=== PATIENT | female | born 1950 | race Caucasian/White ===

== ENCOUNTER 2018-11-25 15:35 | Inpatient (IN) ==
[2018-11-25] MEDS ORDERED: Ipratropium/Albuterol Neb 3 ML IH ONE (15:49)
[2018-11-25] MEDS ORDERED: Azithromycin 500 MG in D5% in Water 250 ML IVPB ONE (15:49)
[2018-11-25] MEDS ORDERED: Ondansetron 4 MG/2 ML VIAL IVP ONE (15:49)
--- NOTE | 2018-11-25 15:51 | Emergency Department Note ---
Disposition Clinical Impression: Community acquired pneumonia Disposition: Admitted As Inpatient Condition: Fair Referrals: Josef Caldera CNP [Primary Care Provider] - Forms: ED Satisfaction Letter Time of Disposition: 17:22 (obsv [facility]) SOB HPI - General Chief Complaint: ED Shortness of Breath/Dyspnea Stated Complaint: COUGH, FEVER Time Seen by Provider: 11/25/18 15:38 Source: patient Mode of arrival: ambulatory Limitations: no limitations Nursing Notes Reviewed: Yes Vital Signs Reviewed: Yes - History of Present Illness 68-year-old female fever chills are not noted that she has been having cough congestion thick phlegm production yellow-green in color choking on episodes of phlegm that she is unable to ambulate around the house without significant dyspnea she denies any diarrhea melena hematochezia hematemesis has had chest pressure but no chest pain no radiation up into the neck or jaw symptoms are not getting better they discontinued should progressively worsening she denies any additional complaints with complete entire review systems Pt Subjective Complaint: shortness of breath, cough Onset (ago): day(s) Context: recent illness Severity: moderate, severe Consistency/Duration: gradually worsening Improves with: oxygen, bronchodilators Worsens with: exertion, movement Known history of: COPD Associated symptoms: Reports: cough, wheezing, sputum production. Denies: chest pain, pain with inspiration, fever, orthopnea, lower extremity pain, polyuria, polydipsia, parasthesias, palpitations, hemoptysis, diaphoresis, nausea/vomiting, syncope, abdominal pain, sense of impending doom Treatment prior to arrival: bronchodilator Cough present: Yes Cough Description: Involuntary, Productive, Strong, Rattling Cough Frequency: Intermittent Sputum production: Yes Sputum Amount: Moderate Sputum Color: Yellow, Green - Related Data Home Medications Medication Instructions Recorded Confirmed Albuterol Sulfate [Albuterol 2 puff IH Q6H PRN 11/25/18 11/25/18 Inhaler] Previous Rx's Medication Instructions Recorded Montelukast [Singulair] 10 mg PO DAILY #30 tablet 10/28/18 Allergies Allergy/AdvReac Type Severity Reaction Status Date / Time No Known Allergies Allergy Verified 10/28/18 19:46 All systems ED: reviewed and negative except as stated. Review of Systems: As Per HPI Constitutional: Reports: fever, weakness. Denies: chills Eyes: Denies: eye pain, eye discharge ENT ED: Reports: throat pain, congestion. Denies: ear pain Cardiovascular: Reports: dyspnea on exertion. Denies: chest pain, palpitations Respiratory: Reports: cough, dyspnea, wheezes, sputum production Gastrointestinal: Denies: abdominal pain, nausea, vomiting Genitourinary: Denies: urgency, dysuria Musculoskeletal: Denies: back pain, neck pain Integumentary: Denies: rash, abrasion Neurological: Denies: headache Psychiatric: Denies: anxiety Endocrine: Denies: fatigue Hematological/Lymphatic: Denies: easy bleeding Allergic/Immunologic: Denies: facial swelling Past Medical History - Past Medical History Source: patient, old records reviewed, nursing notes reviewed Medical history: Reports: COPD - Social History Smoking Status: Current every day smoker Smokeless Tobacco Status: No Alcohol use: Reports: none Drug use: Reports: none Physical Exam - General Limitations: no limitations General appearance: alert, anxious, in distress (With episodes of coughing) - Head Head exam: atraumatic, normocephalic, normal inspection - Eye Eye exam: Present: normal appearance, PERRL, EOMI - ENT ENT exam: normal exam, normal oropharynx, mucous membranes moist, TM's normal bilaterally, normal external ear exam, other (Heavy postnasal drip) - Neck Neck exam: Present: normal inspection, full ROM, trachea midline - Chest Chest inspection: Present: normal inspection, symmetric chest wall rise - Respiratory Respiratory exam: Present: wheezes, prolonged expiratory phase - Cardiovascular Cardiovascular exam: Present: tachycardia, normal heart sounds - Abdominal Exam Abdominal exam: Present: soft, Non-Tender, normal bowel sounds. Absent: mass, pulsatile mass - Expanded Upper Extremity Exam Shoulder exam: Present: normal inspection, full ROM Arm exam: Present: normal inspection, full ROM Elbow exam: Present: normal inspection, full ROM Forearm/Wrist exam: Present: normal inspection, full ROM Hand exam: Present: normal inspection, full ROM Vascular exam: Normal: capillary refill, radial pulse - Expanded Lower Extremity Exam Hip/Pelvis exam: Present: normal inspection, full ROM Upper leg exam: Present: normal inspection, full ROM Knee exam: Present: normal inspection, full ROM Lower leg exam: Present: normal inspection, full ROM Ankle exam: Present: normal inspection, full ROM Foot/toe exam: Present: normal inspection, full ROM Neurovascular/Tendon exam: Present: normal capillary refill, normal fine/light touch. Absent: motor deficit, sensory deficit, tendon deficit Gait: observed and normal - Back Exam Back exam: Present: normal inspection, full ROM. Absent: muscle spasm - Neurological Exam Neurological exam: Present: alert, oriented X3, CN II-XII intact, normal gait - Psychiatric Psychiatric exam: Present: normal affect, normal mood - Skin Skin exam: Present: warm, dry, intact, normal color Course Course Narrative: Patient seen and evaluated patient had been placed on oxygen immediately which did help with her saturations but any type of coughing she would immediately gas desaturate down heart rates 126 she does meet criteria for sepsis most likely secondary to pneumonic type process result I had started sepsis protocol in addition to this will go ahead make arrangements for transfer versus admission pending on the chest x-ray and white count patient be admitted to the hospital for further care treatment management Vital Signs Temperature 98.6 F 11/25/18 15:37 Pulse Rate 132 11/25/18 15:37 Respiratory Rate 20 11/25/18 15:37 Blood Pressure 140/66 11/25/18 15:37 O2 Sat by Pulse Oximetry 86 11/25/18 15:37 Temperature 98.6 F 11/25/18 15:37 Pulse Rate 119 11/25/18 17:08 Respiratory Rate 19 11/25/18 17:08 Blood Pressure 112/59 11/25/18 17:08 O2 Sat by Pulse Oximetry 93 11/25/18 17:08 Oxygen Delivery Oxygen Delivery Nasal Cannula Shortness of Breath/Dyspnea - Differential Diagnosis Likely: acute exacerbation of chronic obstructive airways disease - Medical Records Medical records reviewed: Yes I reviewed the patient's medical records. - Lab Data Lab results reviewed: Yes I reviewed the patient's lab results. Result diagrams: 11/25/18 16:06 11/25/18 16:06 Lab Results 11/25/18 11/25/18 11/25/18 Range/Units 16:06 16:06 16:06 WBC 19.3 H (4.3-11.1) K/mcL RBC 5.05 H (3.82-4.97) M/mcL Hgb 15.0 (11.5-15.4) g/dL Hct 45.5 H (35.3-44.9) % MCV 90.1 (83.0-100.0) fL MCH 29.7 (28.0-33.3) pg MCHC 33.0 (31.6-35.5) g/dL RDW 14.1 (11.5-14.5) % Plt Count 248 (140-400) K/mcL MPV 9.7 (9.4-12.4) fL Immature Gran % 0.7 (0-4) % Seg Neutrophils % 87.0 % Lymphocytes % 5.4 % Monocytes % 6.2 % Eosinophils % 0.3 % Basophils % 0.4 % Neutrophils # 16.8 H (1.6-8.9) K/mcL Lymphocytes # 1.0 (0.6-4.6) K/mcL Monocytes # 1.2 (0.0-1.3) K/mcL Eosinophils # 0.1 (0.0-0.6) K/mcL Basophils # 0.1 (0.0-0.2) K/mcL PT (9.4-12.1) Seconds INR APTT 39.5 H (26.0-36.0) Seconds Sodium 134 L (136-145) mEq/L Potassium 3.9 (3.5-5.1) mEq/L Chloride 95 L (98-107) mEq/L Carbon Dioxide 28 (23-29) mEq/L BUN 11 (8-23) mg/dL Creatinine 0.91 (0.60-1.20) mg/dL Est GFR ( Amer) > 60 (> 60) Est GFR (Non-Af Amer) > 60 (> 60) BUN/Creatinine Ratio 12 (6-26) Glucose 207 H (70-105) mg/dL Calculated Osmolality 283 (280-300) Lactic Acid (0.5-2.2) mmol/L Calcium 9.4 (8.6-10.3) mg/dL Total Bilirubin 1.0 (0.3-1.0) mg/dL AST 13 (13-39) Units/L ALT 12 (7-52) Units/L Alkaline Phosphatase 115 H (34-104) Units/L Serum Total Protein 8.2 (6.4-8.9) g/dL Albumin 4.0 (3.5-5.7) g/dL Globulin 4.2 H (2.4-3.5) g/dL Albumin/Globulin Ratio 1.0 L (1.1-2.2) 11/25/18 11/25/18 Range/Units 16:06 16:06 WBC (4.3-11.1) K/mcL RBC (3.82-4.97) M/mcL Hgb (11.5-15.4) g/dL Hct (35.3-44.9) % MCV (83.0-100.0) fL MCH (28.0-33.3) pg MCHC (31.6-35.5) g/dL RDW (11.5-14.5) % Plt Count (140-400) K/mcL MPV (9.4-12.4) fL Immature Gran % (0-4) % Seg Neutrophils % % Lymphocytes % % Monocytes % % Eosinophils % % Basophils % % Neutrophils # (1.6-8.9) K/mcL Lymphocytes # (0.6-4.6) K/mcL Monocytes # (0.0-1.3) K/mcL Eosinophils # (0.0-0.6) K/mcL Basophils # (0.0-0.2) K/mcL PT 14.3 H (9.4-12.1) Seconds INR 1.3 APTT (26.0-36.0) Seconds Sodium (136-145) mEq/L Potassium (3.5-5.1) mEq/L Chloride (98-107) mEq/L Carbon Dioxide (23-29) mEq/L BUN (8-23) mg/dL Creatinine (0.60-1.20) mg/dL Est GFR ( Amer) (> 60) Est GFR (Non-Af Amer) (> 60) BUN/Creatinine Ratio (6-26) Glucose (70-105) mg/dL Calculated Osmolality (280-300) Lactic Acid 1.4 (0.5-2.2) mmol/L Calcium (8.6-10.3) mg/dL Total Bilirubin (0.3-1.0) mg/dL AST (13-39) Units/L ALT (7-52) Units/L Alkaline Phosphatase (34-104) Units/L Serum Total Protein (6.4-8.9) g/dL Albumin (3.5-5.7) g/dL Globulin (2.4-3.5) g/dL Albumin/Globulin Ratio (1.1-2.2) - Radiology Data Radiology results reviewed: Yes I reviewed the patient's radiology results. - EKG Data EKG attestation: Yes I reviewed and interpreted this EKG. EKG results narrative: Sinus tach rate 125 AR 198 QRS 76 QT to 97 access 79 Critical Care Time Critical Care Time: Yes Total Critical Care Time: 15 Attestation: High probability clinically significant life-threatening deterioration is patient's condition exclusive reportable procedures as result of hypoxia the patient having desaturations with episodes of coughing and bringing up thick yellow-green phlegm make arrangements for admission versus transfer discussion with family Sepsis Event Note - Evaluation Sepsis Screen: No Definite Risk Current Stage of Suspected Sepsis: sepsis Possible Source of Sepsis: pulmonary - Focused Exam Date of Encounter: 11/25/18 Time of Encounter: 17:24 Vital Signs: Vital Signs Temp Pulse Resp BP Pulse Ox 11/25/18 17:08 119 19 112/59 93 11/25/18 16:24 132 20 121/79 92 11/25/18 15:56 24 96 11/25/18 15:50 86 11/25/18 15:37 98.6 F 132 20 140/66 86 Respiratory Exam: Present: rhonchi, decreased breath sounds, distant breath sounds Cardiovascular Exam: Present: tachycardia Capillary Refill: < 2 seconds Peripheral Pulse Strength: 3+ normal Peripheral Pulse Location: Radial Skin Exam: normal turgor - Bedside Monitoring Bedside Ultrasound Performed: No Passive Leg raise/fluid bolus: negative
[2018-11-25 16:16] LABS: Basophils # 0.1 K/mcL (0.0-0.2); Basophils % 0.4 %; Eosinophils # 0.1 K/mcL (0.0-0.6); Eosinophils % 0.3 %; Hematocrit 45.5 % (35.3-44.9); Immature Granulocytes % 0.7 % (0-4); Lymphocytes % 5.4 %; Mean Corpuscular Hemoglobin 29.7 pg (28.0-33.3); Mean Corpuscular Volume 90.1 fL (83.0-100.0); Mean Platelet Volume 9.7 fL (9.4-12.4); Monocytes # 1.2 K/mcL (0.0-1.3); Monocytes % 6.2 %; Neutrophils # 16.8 K/mcL (1.6-8.9); Platelet Count 248 K/mcL (140-400); Red Blood Count 5.05 M/mcL (3.82-4.97); Red Cell Distribution Width 14.1 % (11.5-14.5)
[2018-11-25] MEDS: 0.9 % Sodium Chloride 1,000 ML IVC SCH ×8 (16:18→22:50)
[2018-11-25 16:23] LABS: INR 1.3; Prothrombin Time 14.3 Seconds (9.4-12.1)
[2018-11-25 16:36] LABS: Alanine Aminotransferase 12 Units/L (7-52); Alkaline Phosphatase 115 Units/L (34-104); Aspartate Amino Transferase 13 Units/L (13-39); BUN/Creatinine Ratio 12 (6-26); Blood Urea Nitrogen 11 mg/dL (8-23); Calcium 9.4 mg/dL (8.6-10.3); Carbon Dioxide 28 mEq/L (23-29); Chloride 95 mEq/L (98-107); Globulin 4.2 g/dL (2.4-3.5); Glucose 207 mg/dL (70-105); Osmolality,Calculated 283 (280-300); Potassium 3.9 mEq/L (3.5-5.1); Sodium 134 mEq/L (136-145); Total Protein 8.2 g/dL (6.4-8.9); eGFR For Non-African Americans > 60 (> 60)
[2018-11-25] MEDS ORDERED: Naloxone 0.4 MG/ML INJ IVP PRN (20:29)
[2018-11-26 05:58] LABS: Basophils # 0.1 K/mcL (0.0-0.2); Basophils % 0.4 %; Eosinophils # 0.1 K/mcL (0.0-0.6); Eosinophils % 0.7 %; Hemoglobin 12.5 g/dL (11.5-15.4); Immature Granulocytes % 0.8 % (0-4); Lymphocytes # 2.1 K/mcL (0.6-4.6); Lymphocytes % 11.6 %; Mean Corpuscular HGB Conc 32.1 g/dL (31.6-35.5); Mean Corpuscular Hemoglobin 29.7 pg (28.0-33.3); Mean Corpuscular Volume 92.6 fL (83.0-100.0); Mean Platelet Volume 10.2 fL (9.4-12.4); Monocytes # 1.4 K/mcL (0.0-1.3); Monocytes % 7.6 %; Neutrophils # 14.2 K/mcL (1.6-8.9); Platelet Count 233 K/mcL (140-400); Red Blood Count 4.21 M/mcL (3.82-4.97); Red Cell Distribution Width 14.4 % (11.5-14.5); Segmented Neutrophils % 78.9 %
[2018-11-26 06:04] LABS: INR 1.2; Prothrombin Time 13.8 Seconds (9.4-12.1)
[2018-11-26 06:07] LABS: Activated Partial Thrombo Time 37.1 Seconds (26.0-36.0)
[2018-11-26 06:18] LABS: BUN/Creatinine Ratio 9 (6-26); Blood Urea Nitrogen 7 mg/dL (8-23); Calcium 8.5 mg/dL (8.6-10.3); Carbon Dioxide 28 mEq/L (23-29); Chloride 105 mEq/L (98-107); Glucose 120 mg/dL (70-105); Osmolality,Calculated 289 (280-300); Potassium 3.8 mEq/L (3.5-5.1); Sodium 140 mEq/L (136-145); eGFR For Non-African Americans > 60 (> 60)
--- NOTE | 2018-11-26 11:09 | Internal Med History&Physical ---
Date of Encounter: 11/26/18 Time of Encounter: 10:45 Assessment and Plan (1) COPD (chronic obstructive pulmonary disease) Current visit: Yes Status: Acute Failed outpatient treatment. She has been started on IV Rocephin and Zithromax through emergency room. Chest CT will be done to further evaluate. Qualifiers: COPD type: unspecified COPD Qualified Code(s): J44.9 - Chronic obstructive pulmonary disease, unspecified (2) Acute gastroenteritis Current visit: Yes Status: Acute Resolving. Antiemetics will be used as needed. Internal Medicine - H&P: HPI Chief complaint: Cough and dyspnea Admitted From: Emergency Dept Plans for Post Hospital Care: Home History of present illness: Ms. De Los Santos is a 68 year old female who came to emergency room complaining of a 6 week history of cough and dyspnea. She reports taking a Z-Marvin (given to her by her [id number]) followed a few days later by a visit to a local urgent care where she received a 5 day course of Keflex. She completed the Keflex approximately 3 weeks ago without feeling significantly improved. She reports feeling fevered and having chills at home. She reports vomiting and diarrhea last week. She states several family members have similar illness. She came to emergency room and was evaluated was felt to have possible pneumonia. She was admitted to [facility] floor for ongoing care needs. She states she has smoked since age 16 up to one half packs per day. She has a diagnosis of COPD and claims PFTs were done 2018. She does not use home oxygen. She denies testing for TIM. Past Med Surg Social Fam HX - Past Medical History Medical history: COPD, fibromyalgia, other Additional medical history: psoriasis Psychiatric history: no psych history - Past Surgical History Additional surgical history: SKIN CANCER REMOVED, appendectomy, partial hysterectomy, left foot fx - Social History Smoking Status: Current some day smoker Smokeless Tobacco Status: No Alcohol use: none Drug use: none - Family History Mother History Unknown: Yes Adopted: No Internal Medicine - H&P: Meds Montelukast [Singulair] 10 mg PO DAILY #30 tablet 10/28/18 [Rx] Albuterol Sulfate [Albuterol Inhaler] 2 puff IH Q6H PRN 11/25/18 [History] Allergy/AdvReac Type Severity Reaction Status Date / Time No Known Allergies Allergy Verified 10/28/18 19:46 All Systems PM: A 10-system review of systems was performed and is negative for pertinent findings except as documented above in the HPI. Review of systems: Gen.: She states her weight has been stable for several months Cardiovascular: She has occasional chest pain but it is unrelated to activity. She denies hypertension NM heart failure DVT or pulmonary embolus Respiratory: As per history of present illness GI: She has had appendectomy. She denies disorders of her liver gallbladder or exocrine pancreas. : She has had hysterectomy. She denies hematuria dysuria or kidney stones Neurologic: She denies large distribution strokes or seizures. Endocrine: She denies diabetes thyroid disease or hyperlipidemia Hematology/oncology: She had skin cancer treated on more than one occasion. She denies internal malignancies or anemia. She had left breast lumpectomy with benign pathology. Psychiatric: She denies anxiety depression or other mental health issues [place] skeletal: She denies arthritis gout or other bone joint or muscle disorders. - Constitutional Vitals: Temp Pulse Resp BP Pulse Ox 98.6 F 89 22 112/67 94 11/26/18 10:45 11/26/18 10:45 11/26/18 10:45 11/26/18 10:45 11/26/18 10:45 Exam: Gen.: She is a well-developed well-nourished female resting in bed who appears slightly dyspneic HEENT: Head is atraumatic and normocephalic. Eyes: EOMI. There is no scleral icterus. Mouth: Mucosa is moist. Neck: Supple and nontender. There is no thyromegaly or adenopathy noted. Heart: Regular without murmurs gallops or ectopics Lungs: She has egophony in the right upper posterior lung area. She has prolonged expiratory phase but no significant wheezing. No inspiratory crackles are heard. Abdomen: Soft and nontender. No masses or guarding are noted. Extremities: There is no cyanosis edema or clubbing noted. Dorsalis pedis and posttibial pulses are trace to 1+ palpable bilaterally. Neurologic: Mental status: She is talkative and a good historian. Cranial nerves: Smile is symmetric. Forehead wrinkles bilaterally. Tongue protrudes midline. EOMI. Motor: There is no pronator drift. Cerebellar: Finger to nose is intact bilaterally. Skin: Warm and dry. She has multiple areas of psoriasis on skin of arms and legs. None noted on her abdomen or back. Internal Med - H&P Results - Labs CBC & Chem 7: 11/26/18 04:41 11/26/18 04:41 Labs: Short CBC 11/25/18 11/26/18 Range/Units 16:06 04:41 WBC 19.3 H 18.0 H (4.3-11.1) K/mcL Hgb 15.0 12.5 D (11.5-15.4) g/dL Hct 45.5 H 39.0 (35.3-44.9) % Plt Count 248 233 (140-400) K/mcL Neutrophils # 16.8 H 14.2 H (1.6-8.9) K/mcL BMP 11/25/18 11/26/18 16:06 04:41 Sodium 134 L 140 Potassium 3.9 3.8 Chloride 95 L 105 Carbon Dioxide 28 28 BUN 11 7 L Creatinine 0.91 0.77 Glucose 207 H 120 H Calcium 9.4 8.5 L Liver Function 11/25/18 Range/Units 16:06 Total Bilirubin 1.0 (0.3-1.0) mg/dL AST 13 (13-39) Units/L ALT 12 (7-52) Units/L Alkaline Phosphatase 115 H (34-104) Units/L Albumin 4.0 (3.5-5.7) g/dL - Impressions ITS Impressions Chest X-Ray 11/25/18 15:48 IMPRESSION: Unchanged pulmonary vascular congestion. D/ / Yosvany Madrid MD / Yosvany Madrid MD Interpreting Provider: Yosvany Madrid MD
[2018-11-26] MEDS: Acetaminophen 325 MG TABLET PO PRN (16:19)
[2018-11-26] MEDS: cefTRIAXone 1,000 MG in Water for inj. (sterile) 20 ML 10 ML IVP SCH (16:24)
[2018-11-26] MEDS: Azithromycin 500 MG in D5% in Water 250 ML IVPB SCH (16:25)
[2018-11-26] MEDS: Benzonatate 100 MG CAPSULE PO PRN (22:14)
[2018-11-27] MEDS: Benzonatate 100 MG CAPSULE PO PRN ×2 (04:25→13:09)
--- NOTE | 2018-11-27 14:26 | Electrocardiograph Report ---
[place] [id number] Test Date: 2018-11-25 Pat Name: Nancy De Los Santos Department: EDP-11 Room: [facility] Gender: F Beef Boner: : 1950 Requested By: Eli Orona Order Number: [id number] Reading MD: Reanna Ortiz Measurements Intervals [place] Rate: 125 P: 93 MT: 98 QRS: 79 QRSD: 76 T: 34 QT: 297 QTc: 429 Interpretive Statements Sinus tachycardia Electronically Signed On 11-27-2018 14:24:55 EDT by Reanna Ortiz
--- NOTE | 2018-11-27 15:12 | Internal Med Progress Note ---
Date of Encounter: 11/27/18 Time of Encounter: 15:00 - Assessment and plan (1) COPD (chronic obstructive pulmonary disease) Current Visit: Yes Status: Acute Assessment and plan: November 27. Continue IV Rocephin, Zithromax, albuterol and lactobacillus. Qualifiers: COPD type: unspecified COPD Qualified Code(s): J44.9 - Chronic obstructive pulmonary disease, unspecified (2) Acute gastroenteritis Current Visit: Yes Status: Acute (3) Pneumonia Current Visit: Yes Status: Acute Assessment and plan: November 27. Chest CT showed multifocal pneumonia left greater than right. Continue IV Rocephin and Zithromax with lactobacillus. Qualifiers: Pneumonia type: due to unspecified organism Laterality: bilateral Lung location: unspecified part of lung Qualified Code(s): J18.9 - Pneumonia, unspecified organism (4) Lung nodule Current Visit: Yes Status: Acute Assessment and plan: November 27. Chest CT showed 8 mm right lower lobe nodule. Her PCP can order repeat CT in 6-12 months - Subjective Interval history: November 27. She has no new complaints. She states she does not feel improved. She feels she cannot do deep inspiration. She reports cough with minimal productivity. - Constitutional Vitals: Temp Pulse Resp BP Pulse Ox 98.1 F 65 18 123/65 100 11/27/18 06:24 11/27/18 06:24 11/27/18 06:24 11/27/18 06:24 11/27/18 06:24 Exam: She is sitting on the side of bed and appears in mild respiratory discomfort. She coughed frequently during the visit. Little productivity occurred. I reviewed her medications, lab results, and CT report with her. Internal Medicine: Result - Labs CBC & Chem 7: 11/26/18 04:41 11/26/18 04:41 - ABG Interpretation ABG results: PT/INR, D-dimer PT 13.8 Seconds (9.4-12.1) H 11/26/18 04:41 Consult Discharge Plan - Plan Referrals: Josef Caldera, SALES OPERATIONS MANAGER [Primary Care Provider] - 1 week
[2018-11-27] MEDS: Budesonide/Formoterol 160/4.5 1 PUFF INH IH SCH ×2 (15:15→21:19)
[2018-11-27] MEDS: Azithromycin 500 MG in D5% in Water 250 ML IVPB SCH (17:20)
[2018-11-27] MEDS: cefTRIAXone 1,000 MG in Water for inj. (sterile) 20 ML 10 ML IVP SCH (17:23)
[2018-11-27] MEDS: Acetaminophen 325 MG TABLET PO PRN ×2 (17:26→20:43)
[2018-11-27] MEDS: Albuterol 2.5 MG/3 ML NEBULIZER IH PRN ×2 (19:25→21:25)
[2018-11-27] MEDS: Lactobacillus 1 EACH CAP.SPRINK PO SCH (20:35)
[2018-11-28] MEDS: Benzonatate 100 MG CAPSULE PO PRN ×2 (05:59)
[2018-11-28] MEDS ORDERED: *HR* Enoxaparin 40 MG/0.4 ML SYRINGE SQ SCH (06:00)
[2018-11-28 06:44] LABS: Hematocrit 38.9 % (35.3-44.9); Hemoglobin 12.4 g/dL (11.5-15.4); Mean Corpuscular HGB Conc 31.9 g/dL (31.6-35.5); Mean Corpuscular Hemoglobin 29.4 pg (28.0-33.3); Mean Corpuscular Volume 92.2 fL (83.0-100.0); Mean Platelet Volume 9.5 fL (9.4-12.4); Platelet Count 251 K/mcL (140-400); Red Blood Count 4.22 M/mcL (3.82-4.97); Red Cell Distribution Width 13.9 % (11.5-14.5)
[2018-11-28 07:10] LABS: BUN/Creatinine Ratio 7 (6-26); Blood Urea Nitrogen 5 mg/dL (8-23); Carbon Dioxide 34 mEq/L (23-29); Chloride 101 mEq/L (98-107); Glucose 119 mg/dL (70-105); Osmolality,Calculated 290 (280-300); Potassium 3.1 mEq/L (3.5-5.1); Sodium 141 mEq/L (136-145); eGFR For Non-African Americans > 60 (> 60)
[2018-11-28] MEDS: Lactobacillus 1 EACH CAP.SPRINK PO SCH (07:54)
[2018-11-28 08:06] LABS: Eosinophils # 0.2 K/mcL (0.0-0.6); Lymphocytes # 2.7 K/mcL (0.6-4.6); Neutrophils # 5.8 K/mcL (1.6-8.9); Platelet Estimate Normal (Normal)
[2018-11-28 08:08] LABS: Dohle Bodies Present (Not Present)
[2018-11-28] MEDS: Budesonide/Formoterol 160/4.5 1 PUFF INH IH SCH (08:48)
--- NOTE | 2018-11-28 09:44 | Discharge Summary ---
Orders not resulted at time of discharge: Pending orders 11/25/18 16:16 Culture,Blood [BC] Stat 11/26/18 11:04 Vitamin D 25 Hydroxy Routine Date of Encounter: 11/28/18 Time of Encounter: 09:35 - Discharge Diagnosis (1) Pneumonia Priority: Primary Status: Acute Qualifiers: Pneumonia type: due to unspecified organism Laterality: bilateral Lung location: unspecified part of lung Qualified Code(s): J18.9 - Pneumonia, unspecified organism (2) COPD (chronic obstructive pulmonary disease) Priority: Secondary Status: Chronic Qualifiers: COPD type: unspecified COPD Qualified Code(s): J44.9 - Chronic obstructive pulmonary disease, unspecified (3) Lung nodule Priority: Secondary Status: Acute (4) Acute gastroenteritis Priority: Secondary Status: Resolved Hospital course: Ms. De Los Santos is a 68 year old female who came to emergency room complaining of a 6 week history of cough and dyspnea. She reports taking a Z-Marvin (given to her by her [id number]) followed a few days later by a visit to a local urgent care where she received a 5 day course of Keflex. She completed the Keflex approximately 3 weeks ago without feeling significantly improved. She reports feeling fevered and having chills at home. She reports vomiting and diarrhea last week. She states several family members have similar illness. She came to emergency room and was evaluated and was felt to have possible pneumonia. She was admitted to [facility] for ongoing care needs. Initial orders written by the emergency room physician. I saw her on November 26 and performed a history and physical. She was started on IV Rocephin and Zit hromax through emergency room. Chest CT was done to further evaluate. The chest CT showed multifocal pneumonia left greater than right. She had good clinical response to antibiotics with WBC normalizing to 9.7 and resolution of left shift by November 28. She remained afebrile during her hospital stay. She will continue with Ceftin and Zithromax for 3 additional [address] discharge. CT showed a noncalcified 8 mm pulmonary nodule in the right lower lobe. Repeat CT scan in 6-12 months was recommended. Her PCP can order this. On November 28 she felt improved and stable for discharge home. Room air oximetry will be checked on 6 minute walk prior to discharge. I encouraged her to become a nonsmoker. She will follow with her PCP Josef Caldera CNP within 1 week. - Time Spent with Patient Total time spent providing and/or coordinating discharge services: - Discharge Medications Prescriptions: New Cefuroxime PO [Ceftin] 500 mg PO Q12HR #6 tablet Azithromycin [Zithromax] 250 mg PO DAILY #3 tablet Lactobacillus [Culturelle] 1 each PO BID #6 cap.sprink Continue Montelukast [Singulair] 10 mg PO DAILY #30 tablet Albuterol Sulfate [Albuterol Inhaler] 2 puff IH Q6H PRN PRN Reason: Wheezing Home Medications: Montelukast [Singulair] 10 mg PO DAILY #30 tablet 10/28/18 [Rx] Albuterol Sulfate [Albuterol Inhaler] 2 puff IH Q6H PRN 11/25/18 [History] Azithromycin [Zithromax] 250 mg PO DAILY #3 tablet 11/28/18 [Rx] Cefuroxime PO [Ceftin] 500 mg PO Q12HR #6 tablet 11/28/18 [Rx] Lactobacillus [Culturelle] 1 each PO BID #6 cap.sprink 11/28/18 [Rx] Allergies/Adverse Reactions: Allergy/AdvReac Type Severity Reaction Status Date / Time No Known Allergies Allergy Verified 10/28/18 19:46 Date of admission: 11/27/18 15:16 Primary care physician: Josef Caldera CNP Consults: 11/25/18 19:36 Consult to Nutrition [CONS] Routine Comment: losing weight witout trying Consulting Provider: NUTRITION Reason for Dietary Consult: Diet Education Consult to Pastoral Services [CONS] Routine Comment: Consult to Toll Collector Supervisor [CONS] Routine Reason for SW Consult: lives alone, concerns with finances 11/25/18 20:29 Consult to Nurse Navigator [CONS] Routine Comment: - Constitutional Vitals: Temp Pulse Resp BP Pulse Ox 98.2 F 70 18 143/74 96 11/28/18 06:22 11/28/18 06:22 11/28/18 08:49 11/28/18 06:22 11/28/18 08:49 - Patient Status Disposition: Home, Self-Care Condition: Fair - Discharge Instructions Follow Up With: Josef Caldera CNP [Primary Care Provider] - 1 week - Diet and Activity Activity: resume usual activities as tolerated Diet: advance to your usual diet
--- NOTE | 2018-11-28 10:00 | Physician Discharge Referral ---
Home Health/Hosp Referral Info Transfer to: Home Health Attending Provider: Raciel Provider in Charge Post Discharge: PCP Bonifacio) - Diagnosis (1) Pneumonia Priority: Primary Status: Acute (2) COPD (chronic obstructive pulmonary disease) Priority: Secondary Status: Chronic (3) Lung nodule Priority: Secondary Status: Acute (4) Acute gastroenteritis Priority: Secondary Status: Resolved - Respiratory Orders Smoking Cessation: Smoking cessation has been advised. For more information, call the [place] Tobacco Quit Line at 9-345-HBDU-NOW. - Diet/Nutrition Diet/Nutrition Orders: Regular - Activity Activity Orders: Ambulate - Services Needed Following services are medically necessary services: Nursing, Home Health Aide, Physical Therapy, Occupational Therapy - Transfer Medications Prescriptions: Cefuroxime PO [Ceftin] 500 mg PO Q12HR #6 tablet Azithromycin [Zithromax] 250 mg PO DAILY #3 tablet Lactobacillus [Culturelle] 1 each PO BID #6 cap.sprink Home Medications: Montelukast [Singulair] 10 mg PO DAILY #30 tablet 10/28/18 [Rx] Albuterol Sulfate [Albuterol Inhaler] 2 puff IH Q6H PRN 11/25/18 [History] Azithromycin [Zithromax] 250 mg PO DAILY #3 tablet 11/28/18 [Rx] Cefuroxime PO [Ceftin] 500 mg PO Q12HR #6 tablet 11/28/18 [Rx] Lactobacillus [Culturelle] 1 each PO BID #6 cap.sprink 11/28/18 [Rx] Allergies/Adverse Reactions: Allergy/AdvReac Type Severity Reaction Status Date / Time No Known Allergies Allergy Verified 10/28/18 19:46 Certification: Further, I certify that my clinical findings support that this patient is homebound (i.e. absences from home require considerable and taxing effort and are for medical reasons or confucianism services or infrequently or short duration when for other reasons) because: Homebound Reason: Leaving home requires considerable and taxing effort due to condition (COPD, dyspnea on exertion.) Attestation: My signature below is to certify that this patient is under my care and that I, or nurse practitioner, or a physician's assistant professor nurse education working with me, has a [id number] encounter with this patient.
[2018-11-28 10:35] VITALS: BP 127/70
== END 2018-11-28 17:30 | disposition home or self-care (01) | DRG 194 ==
LOC: EMEROOPIK 15:35 → INPPIK 15:35
PROVIDERS: ADMIT Internal Medicine; ATTEND Internal Medicine

== ENCOUNTER 2019-12-06 20:45 | Observation (INO) ==
[2019-12-06 21:30] LABS: Basophils # 0.1 K/mcL (0.0-0.2); Basophils % 0.3 %; Eosinophils # 0.1 K/mcL (0.0-0.6); Eosinophils % 0.3 %; Hematocrit 44.3 % (35.3-44.9); Hemoglobin 14.8 g/dL (11.5-15.4); Immature Granulocytes % 0.8 % (0-4); Lymphocytes # 1.5 K/mcL (0.6-4.6); Lymphocytes % 6.8 %; Mean Corpuscular HGB Conc 33.4 g/dL (31.6-35.5); Mean Corpuscular Hemoglobin 30.6 pg (28.0-33.3); Mean Corpuscular Volume 91.5 fL (83.0-100.0); Monocytes # 1.1 K/mcL (0.0-1.3); Monocytes % 4.9 %; Neutrophils # 19.5 K/mcL (1.6-8.9); Platelet Count 231 K/mcL (140-400); Red Blood Count 4.84 M/mcL (3.82-4.97); Red Cell Distribution Width 13.8 % (11.5-14.5); Segmented Neutrophils % 86.9 %; White Blood Count 22.4 K/mcL (4.3-11.1)
[2019-12-06 21:32] LABS: INR 1.1; Prothrombin Time 12.5 Seconds (9.4-12.1)
[2019-12-06 21:34] LABS: Bilirubin,Urine Negative (Negative); Blood,Urine Negative (Negative); Clarity,Urine Clear (Clear); Color,Urine Yellow (Yellow); Glucose,Urine (UA) Normal (Normal); Ketones,Urine Negative (Negative); Leukocyte Esterase,Urine Small (Negative); Nitrite,Urine Positive (Negative); Protein,Urine Negative (Neg-Trace); Specific Gravity,Urine 1.015 (1.010-1.025); Urobilinogen,Urine Normal (Normal)
[2019-12-06 21:42] LABS: Alanine Aminotransferase 12 Units/L (7-52); Albumin 4.1 g/dL (3.5-5.7); Albumin/Globulin Ratio 1.3 (1.1-2.2); Alkaline Phosphatase 87 Units/L (34-104); Amylase 17 Units/L (29-103); Aspartate Amino Transferase 14 Units/L (13-39); BUN/Creatinine Ratio 10 (6-26); Bilirubin,Total 0.6 mg/dL (0.3-1.0); Blood Urea Nitrogen 9 mg/dL (8-23); Calcium 9.1 mg/dL (8.6-10.3); Carbon Dioxide 29 mEq/L (23-29); Chloride 100 mEq/L (98-107); Globulin 3.2 g/dL (2.4-3.5); Glucose 141 mg/dL (70-105); Osmolality,Calculated 287 (280-300); Potassium 3.5 mEq/L (3.5-5.1); Sodium 138 mEq/L (136-145); Total Protein 7.3 g/dL (6.4-8.9); eGFR For African Americans > 60 (> 60); eGFR For Non-African Americans > 60 (> 60)
[2019-12-06 21:43] LABS: Troponin I < 0.03 ng/mL (< 0.04)
[2019-12-06 21:44] LABS: RBC,Urine 0-3 per hpf (0-3); Squamous Epithelial Cell,Urine Few per lpf (None-Few); WBC,Urine 15-30 per hpf (0-3)
[2019-12-06 21:45] LABS: Bacteria,Urine Many per hpf (None-Few)
[2019-12-06] MEDS ORDERED: Isovue-370 500 ML BOTTLE IVP ONE (21:58)
[2019-12-06] MEDS ORDERED: Ondansetron 4 MG/2 ML VIAL IVP STA (22:26)
[2019-12-06] MEDS ORDERED: 0.9 % Sodium Chloride 1,000 ML IV ONE (22:47)
[2019-12-06] MEDS ORDERED: cefTRIAXone 1,000 MG in 0.9 % Sodium Chloride Mini Bag 100 ML IVPB ONE (22:47)
[2019-12-06] MEDS ORDERED: Azithromycin 500 MG in 0.9 % Sodium Chloride 250 ML IVPB ONE (23:00)
[2019-12-06] MEDS ORDERED: Ondansetron 4 MG/2 ML VIAL IVP PRN (23:41)
[2019-12-06] MEDS ORDERED: Naloxone 0.4 MG/ML INJ IVP PRN (23:41)
[2019-12-06] MEDS ORDERED: 0.9 % Sodium Chloride 1,000 ML IVC SCH (23:45)
[2019-12-07] MEDS ORDERED: Naloxone 0.4 MG/ML INJ IVP PRN (00:12)
[2019-12-07] MEDS ORDERED: Ondansetron 4 MG/2 ML VIAL IVP PRN (00:12)
[2019-12-07] MEDS ORDERED: 0.9 % Sodium Chloride 1,000 ML IVC SCH (00:12)
[2019-12-07] MEDS: Acetaminophen 325 MG TABLET PO PRN ×2 (02:49→08:38)
[2019-12-07 07:34] VITALS: BP 100/52
[2019-12-07] MEDS ORDERED: cefTRIAXone 1,000 MG in Water for inj. (sterile) 10 ML IVP SCH (09:00)
[2019-12-07] MEDS ORDERED: Piperacillin/Tazobactam 3.375 GM in 0.9 % Sodium Chloride Mini Bag 100 ML IVPB SCH (09:54)
[2019-12-07 10:07] LABS: Basophils % 0.2 %; Eosinophils # 0.2 K/mcL (0.0-0.6); Eosinophils % 0.9 %; Hematocrit 37.3 % (35.3-44.9); Hemoglobin 12.1 g/dL (11.5-15.4); Immature Granulocytes % 0.3 % (0-4); Lymphocytes # 1.9 K/mcL (0.6-4.6); Lymphocytes % 11.7 %; Mean Corpuscular HGB Conc 32.4 g/dL (31.6-35.5); Mean Corpuscular Hemoglobin 30.3 pg (28.0-33.3); Mean Corpuscular Volume 93.3 fL (83.0-100.0); Mean Platelet Volume 9.8 fL (9.4-12.4); Monocytes # 0.8 K/mcL (0.0-1.3); Monocytes % 4.6 %; Neutrophils # 13.5 K/mcL (1.6-8.9); Platelet Count 184 K/mcL (140-400); Red Cell Distribution Width 14.1 % (11.5-14.5); Segmented Neutrophils % 82.3 %; White Blood Count 16.4 K/mcL (4.3-11.1)
[2019-12-07 10:20] LABS: BUN/Creatinine Ratio 13 (6-26); Blood Urea Nitrogen 11 mg/dL (8-23); Calcium 8.1 mg/dL (8.6-10.3); Carbon Dioxide 30 mEq/L (23-29); Chloride 106 mEq/L (98-107); Glucose 204 mg/dL (70-105); Osmolality,Calculated 295 (280-300); Potassium 3.5 mEq/L (3.5-5.1); Sodium 140 mEq/L (136-145); eGFR For African Americans > 60 (> 60); eGFR For Non-African Americans > 60 (> 60)
[2019-12-07] MEDS ORDERED: Clindamycin 600 MG/50 ML 600 MG/50 ML IV.SOLN IVPB SCH (16:00)
[2019-12-07] MEDS ORDERED: Azithromycin 500 MG in 0.9 % Sodium Chloride 250 ML IVPB SCH (23:00)
== END 2019-12-07 10:55 | disposition short-term general hospital (02) ==
LOC: EMEROOPIK 20:45 → INPPIK 20:45
PROVIDERS: ADMIT Internal Medicine; ATTEND Internal Medicine